=== PATIENT | female | born 1990 | race Caucasian/White ===

== ENCOUNTER 2023-04-23 15:29 | Outpatient (CLI) | payer SELFPAY | END 2023-04-23 15:30 | disposition home or self-care (01) | PROVIDERS: PCP Family Medicine; Visit Provider Family Medicine | DX: Z00.00 Encounter for general adult medical examination without abnormal findings (principal); R53.83 Other fatigue; Z13.6 Encounter for screening for cardiovascular disorders; Z11.59 Encounter for screening for other viral diseases | CPT/HCPCS: 80053; 80061; 84443; 86803 ==

== ENCOUNTER 2023-06-07 10:48 | Outpatient (CLI) | payer OTHER, SELFPAY ==
--- NOTE | 2023-06-07 11:00 | CRLHL7_ITS ---
For Patients: As a result of the Century Cures Act, medical imaging exams and procedure reports are released immediately into your electronic medical record. You may view this report before your referring provider. If you have questions, please contact your health care provider. Indication: Localized swelling and mass in the left lateral neck. Technique: Ultrasound examination of the palpable abnormality in the left lateral neck is performed with a high-resolution linear transducer. Comparison: None available Findings: The palpable abnormality is seen to be a normal appearing mildly prominent lymph node, measuring 1.1 x 0.5 x 1.6 centimeters. It has normal hilar architecture and blood flow. With the benign appearance, no further follow-up is indicated radiographically. Impression: Palpable abnormality in the left lateral neck is seen to be a mildly prominent but otherwise normal appearing lymph node, not reaching size criteria to be described as lymphadenopathy. Dictated by García Cardenas MD @ 06/09/2023 5:42:14 PM (Electronically Signed)
== END 2023-06-07 10:49 | disposition home or self-care (01) ==
PROVIDERS: PCP Family Medicine; Visit Provider Family Medicine
DX: R22.1 Localized swelling, mass and lump, neck (principal)
CPT/HCPCS: 76536

== ENCOUNTER 2023-11-12 14:57 | Outpatient (CLI) | payer OTHER, SELFPAY ==
--- OUTSIDE RECORDS SUMMARY | 2023-11-12 15:02 | XMS_ITS | Encounter Summary ---
Author Name Unknown Organization [facility] Address [address] [place] [address] Care Team Providers Care Development Technical Lead Name Role Phone Justin Haley PA-C Primary Care Provider + [phone] Reason for Referral * Therapies (Routine) - New Request Specialty Diagnoses / Procedures Referred By Lora grant Referred To Contact Diagnoses Right calf pain Cruz Fay DO [address] [place] [address] Referral ID Status Reason Start Date Expiration Date V isits Requested Visits Authorized [id number] New Request 04/23/2023 04/22/2024 [id number] Scheduling Instructions Your clinician has recommended an appointment with [facility]. You can quickly make your appointment online at [facility]/schedule. You can also call [phone] for help scheduling your appointment. We suggest you call your health insurance company about your coverage and benefits for this appointment. Question Answer Appointment Urgency? Non-Urgent Requested Services Evaluate and treat May use saline for irrigation or cleansing Yes RFV/Clin Data Right Calf Strain /Partial Tear dexamethasone use Yes May check glucose per protocol (see policy link below) or if patient has symptoms? Yes Comments Goals: Pain Control/strength and ROM Home Exercise Program Modalities Reason for Visit * Reason Comments LEG PAIN KOTA - playing softba ll and was batting, started to run, calf popped, hurt a lot, then the next morning hurt some, but not too bad, calf continued to pop and radiate pain into the hamstring, difficult to put weight on legDOI - 04/06/2023 Encounter Details Date Type Department Care Team Description 04/23/2023 5:20 PM CDT Office Visit [facility] [address] [place] [id number] Cruz Fay DO [address] [place], [place] [address] Strain of right calf muscle (Primary Dx); Right calf pain Social History Tobacco Use Types Packs/Day Years Used Date Smoking Tobacco: Some Days Cigarettes 0.3 8.1 Started: 09/19/2015 Smokeless Tobacco: Never Comments:quit 05/2020 Alcohol Use Standard Drinks/Week Comments Yes 6 (1 standard drink = 0.6 oz pur e alcohol) PHQ-2 Answer Date Recorded PHQ-2 Score 1 05/24/2020 Sex and Gender Information Value Date Recorded Sex Assigned at Not on file Gender Identity Not on file Sexual Orientation Not on file documented as of this encounter Last Filed Vital Signs Vital Sign Reading Time Taken Comments Blood Pressure - - Pulse - - Temperature 36.2 ??C (97.1 ??F) 04/23/2023 5:07 PM CD T Respiratory Rate - - Oxygen Saturation - - Inhaled Oxygen Concentration - - Weight 113.4 kg (250 lb) 04/23/2023 5:07 PM CDT Height 160 cm (5' 3) 04/23/2023 5:07 PM CDT Body Mass Index 44.29 04/23/2023 5:07 PM CDT documented in this encounter Patient Instructions * Patient Instructions* Jessica Atkinson LPN - 04/23/2023 5:20 PM CDT Thank you for choosing [facility] for your health care visit today. Cruz Fay DO Medication Requests: Prescriptions are filled on Weekdays before 3:00PM For all medication refills: Request a refill using MyChart or contact your Pharmacy Paperwork Requests: FMLA or disability paperwork can be faxed to: [phone] Please allow 7-10 business days for completion of all paperwork. [facility] Worker's Compensation Services: E-mail Address: [email or web address] What is Know Your Cost? Know Your Cost is a service for patients and patient/members to call and receive personalized cost information and estimates across our care group. The phone number is (COST) Sunday - Sunday 8 AM to 5 PM To request copies of your medical records, call: [phone] (option 4) Diagnosis: Right Calf Strain/Partial Tear Plan: Follow Up: As needed if symptoms are not improving or worsen. Physical Therapy: Schedule your physical therapy appointment by calling [phone]. Brace/DME: You were provided a Tall walking boot in clinic today. Please use and care according to instructions given today. This item will be billed to your insurance. If insurance does not cover this item, you will be billed for any uncovered amount. You should wear your items as directed in clinic. Weight bear as tolerated. Come out of boot as pain allows. If you have any questions regarding your visit or next steps, please contact us at [phone]. documented in this encounter Progress Notes * Cruz Fay, DO - 04/23/2023 12:00 AM CDT NAME: ANNELISE JUAN CSN: [id number] CLINIC NOTE DATE OF SERVICE: 04/23/2023 : 1990 HISTORY OF PRESENT ILLNESS: This is a 32-year-old female who presents regarding a right lower leg injury. She recalls playing softball about 2 weeks ago and was running and felt a mild discomfort to her right calf. This seemed to improve with rest and conservative measures, but never completely resolved. She noted a new onset of pain yesterday while playing softball when she ran in a similar manner and felt a pop and sudden onset of pain. She localizes pain to the medial aspect of her right calf and she has noted some swelling since yesterday. She notes pain from her calf that radiates down to her ankle and occasionally notes some pain into her posterior thigh. Pain is anywhere from a 5/10 to 10/10 in severity. She has been limping today and feels that she has not had much improvement. Given her ongoing discomfort, she presents here for further evaluation. PAST MEDICAL HISTORY: Reviewed and updated. MEDICATIONS: Per Epic. ALLERGIES: NO KNOWN DRUG ALLERGIES. 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 She is a smoker. She enjoys playing softball. REVIEW OF SYSTEMS: A comprehensive review of systems was performed and is negative. PHYSICAL EXAM: VITAL SIGNS: Height 5 feet 3 inches, weight 250 pounds, temperature 97.1. GENERAL: This is a well-appearing 32-year-old female. She appears comfortable and in no distress. She has an antalgic gait. MUSCULOSKELETAL: Right lower leg exam shows no visible deformity. She is nontender to her right knee and full active range of motion involving her right knee. She has trace swelling to her right calf on comparison to left. She is quite tender over the medial muscle belly of her gastrocnemius. She is nontender over her Achilles tendon which appears to be intact. She has a negative Cortes test. Nontender over her tibia and fibula. She has calf discomfort with foot plantar flexion and dorsiflexion. Negative Homans sign. Sensation is grossly intact to her right lower extremity. ASSESSMENT: Right calf strain/partial tear. PLAN: We discussed her current findings. We discussed her exam which appears consistent with a calfstrain/partial tear. At this time, I recommended placement into a boot. She was fitted for a tall CAM boot in clinic and she will utilize this in the short term. She can come out of this as pain allows, but will utilize this in the short term. I also recommended a physical therapy referral to help advance her and she is interested in pursuing this. She will continue ice, relative rest, and ymie-tav-[id number] analgesics. I recommended she refrain from softball activities until she is able to run without pain. She is overall comfortable with plan and she will follow up here as needed. DO FELISA RODRIGUEZ/KAVITHA /[id number] documented in this encounter Plan of Treatment Scheduled Referrals Name Type Priority Associated Diagnoses Orde r Schedule Physical Therapy Referral Routine Right calf pain Ordered: 04/23/2023 documented as of this encounter Visit Diagnoses Diagnosis Strain of right calf muscle- Primary Right calf pain documented in this encounter Care Teams Development Technical Lead Relationship Specialty Start Date End Date Justin Haley PA-C [address] [place] [address] PCP - General Physician Field Party Manager 07/03/19 documented as of this encounter
--- OUTSIDE RECORDS SUMMARY | 2023-11-12 15:02 | XMS_ITS | Encounter Summary ---
Author Name Unknown Organization [facility] Address [address], [place] [address] Care Team Providers Care Immigration Officer Name Role Phone TeraJustin Demian QUIJANO Primary Care Provider [phone] Encounter Details Date Type Department Care Team Description 05/07/2023 6:10 PM CDT Office Visit [facility] [address] [place] [address] Seymour Rao MD [address] [place] [address] Strain of calf muscle, right, subsequent encounter (Primary Dx) Social History Tobacco Use Types Packs/Day Years [...] on file documented as of this encounter Patient Instructions * Patient Instructions* Zamzam Gant, ATC - 05/07/2023 6:10 PM CDT Thank you for choosing [facility] for your health care visit today. Seymour Rao MD Medication Requests: Prescriptions are filled on Weekdays before 3:00PM For all medication refills: Request a refill using [employer] or contact your Pharmacy Paperwork Requests: FMLA or disability paperwork can be faxed to: [phone] Please allow 7-10 business days for completion of all paperwork. [facility] Worker's Compensation Services: E-mail Address: [email or web address] What is Know Your Cost? Know Your Cost is a service for patients and patient/members to call and receive personalized cost information and estimates across our care group. The phone number is (COST) Sunday - Sunday 8 AM to 5 PM To request copies of your medical records, call: [phone] (option 4) Diagnosis: Calf tear Plan: Follow Up: 2 weeks Medications: Over the Counter Medications: Acetaminophen (Tylenol) Ibuprofen (Motrin) taken per bottle instructions unless specified by physician. RICE: - Utilize ice over the injured area (ice bag or bag of frozen vegetables) several times per day for up to 20 minutes at a time. Be sure to place a cold wet wash cloth or towel between the ice and your skin. - Elevate the affected body part above the level of the heart for 15-20 minutes, 3-4 times per day. - Avoid activities that cause pain. Brace/DME: You were provided a crutches, SHERMAN wrap, and heel lifts inside shoes in clinic today. Please use and care according to instructions given today. This item will be billed to your insurance. If insurance does not cover this item, you will be billed for any uncovered amount. You should wear your items as directed in clinic. If you have any questions regarding your visit or next steps, please contact us at [phone]. documented in this encounter Progress Notes * Seymour Rao MD - 05/07/2023 6:10 PM CDT [facility] Follow-Up 05/07/2023 History of Present Illness: Annelise Qureshi is a 32 y.o. female who presents for follow-up ongoing pain from right calf injury.Patient had sudden onset of pain while she was playing softball approximally 2 weeks ago. She was diagnosed with a tear to the gastrosoleus complex by Dr. Fay on April 23 and placed in a tall boot. Patient presents today because the boot is irritating her calf and not helping her pain. She is wondering if there is any other options. She has pain still in the same location. No new pain or injury. No new swelling.. Physical Exam: There were no vitals taken for this visit. Skin: No redness, swelling, warmth, rash, laceration or abrasion Neuro: Intact sensation to light touch over the leg Cardiovascular: Normal capillary refill. 2+ distal pulses Musculoskeletal: Right leg: Tenderness over the mid calf without palpable defect or overlying ecchymosis or edema. No distal edema. Pain is exacerbated with plantar flexion against resistance and passive dorsiflexion of the ankle. There is no tenderness or defect over the Achilles tendon. Assessment: ICD-10-CM 1. Strain of calf muscle, right, subsequent encounter S86.811D Plan: 32-year-old female with ongoing pain from what is most likely a tear in the gastrocnemius muscle. Patient is prescribed tall boot is irritating the area. We will transition her out of the boot into heel lifts with a Sherman wrap in crutch assisted ambulation. Would like to refer to physical therapy foradditional management. Would like to follow up with patient in 2 weeks to check on her progress. Nonew areas of pain or distal edema to suggest DVT. History is very convincing for muscular tear. Educated the patient regarding her condition and management. Discharged with return precautions Scribe Disclosure: Seymour Moyer, am serving as a scribe to document services personally performed by Seymour Rao MD at this visit, based upon the providers statements to me. All documentation has been reviewed by the aforementioned doctor prior to being entered into the official medical record. Entered on 05/07/23 at 9:09 PM. Seymour Moyer MD, attest that the above named individual is acting in scribe capacity, has observed my performance of the services performed at this visit and has documented them in accordancewith my direction. Entered on 07/24/23 at 9:09 PM. Seymour Rao MD documented in this encounter Plan of Treatment Not on file documented as of this encounter Visit Diagnoses Diagnosis Strain of calf muscle, right, subsequent encounter- Primary documented in this encounter Care Teams Immigration Officer Relationship Specialty Start Date End Date Justin Haley PA-C [address] [place] [address] PCP - General Physician Strategy Manager 07/03/19 documented as of this encounter
--- OUTSIDE RECORDS SUMMARY | 2023-11-12 15:02 | XMS_ITS | Encounter Summary ---
Author Name Unknown Organization [facility] Address [address] [place] [address] Care Team Providers Care Bulk Plant Supervisor Name Role Phone Justin Haley PA-C Primary Care Provider [phone] Reason for Visit * Reason Comments QUESTIONS, GENERAL Encounter Details Date Type Department Care Team Description 05/07/2023 Telephone [facility] [address] [place] [address] Cruz Fay DO [address] [place] [address] QUESTIONS, GENERAL Social History Tobacco Use Types Packs/Day Years [...] on file documented as of this encounter Nursing Notes * Janice Pinon RN - 05/07/2023 11:41 AM CDT Informed Annelise of Dr. Fay's message. She reported her pain has been persistent and even worsening since AGUSTÍN. I advised she RTC for re-eval and crutches. She wants to return boot as well. She will bring it with to F/U this evening. * Rafaela Kong RN - 05/07/2023 10:42 AM CDT Patient requesting a call back from care team to discuss other options rather than wearing a boot. Boot is causing patient pain and discomfort. Advise please on next steps. ASSESSMENT: Right calf strain/partial tear. PLAN: We [...] She will continue ice, relative rest, and mkdb-oya-mtdelhx analgesics. I recommended she refrain from softball activities until she is able to run without pain. She is overall comfortable with plan and she will follow up here as needed. DO FELISA RODRIGUEZ/KAVITHA /[id number] * Deanna Mccracken - 05/07/2023 8:50 AM CDT Has the patient recently had surgery or an injury? No How may we help you today? Patient requesting a call back from care team. Describe your symptoms/concerns: Patient requesting a call back from care team to discuss other options rather than wearing a boot. Boot is causing patient pain and discomfort. Have you been seen for this recently?: 04/23/2023 - Cruz Fay DO [Rail Bender/Appt Center: If yes, please include date and provider.] Is it okay to leave detailed message on your voicemail? Yes [Rail Bender/Appt Center: If this call is after 3 p.m., communicate to patient: If we are not able to get back to you by the end of the day and your symptoms worsen please contact the Careline] documented in this encounter Plan of Treatment Not on file documented as of this encounter Visit Diagnoses Not on filedocumented in this encounter Care Teams Bulk Plant Supervisor Relationship Specialty Start Date End Date Justin Haley PA-C [address] [place] [address] PCP - General Physician Political Science Professor 07/03/19 documented as of this encounter
--- OUTSIDE RECORDS SUMMARY | 2023-11-12 15:02 | XMS_ITS | Encounter Summary ---
Author Name Unknown Organization [facility] Address [address], [place] [address] Care Team Providers Care Baseball Umpire For Little League Name Role Phone Tera Justin Arciniega PA-C Primary Care Provider [phone] Reason for Visit * Reason Comments QUESTIONS, GENERAL Encounter Details Date Type Department Care Team Description 05/09/2023 Telephone [facility] [address] [place] [address] Seymour Rao MD [address] [place] [address] QUESTIONS, GENERAL Social History Tobacco Use Types [...] Nursing Notes * Janice Pinon RN - 05/09/2023 1:25 PM CDT Informed Annelise of Dr. Rao's message. She expressed understanding. * Teresa Montanez - 05/09/2023 11:50 AM CDT Has the patient recently had surgery or an injury? No Patient states new restrictions were provided at last visit, unsure if she'll need a new Physical therapy order. Please advise. documented in this encounter Plan of Treatment Not on file documented as of this encounter Visit Diagnoses Not on filedocumented in this encounter Care Teams Baseball Umpire For Little League Relationship Specialty Start Date End Date Justin Haley PA-C [address] [place] [address] PCP - General Physician Metal Hanging Helper 07/03/19 documented as of this encounter
--- OUTSIDE RECORDS SUMMARY | 2023-11-12 15:02 | XMS_ITS | Clinical Summary ---
Author Name Unknown Organization [facility] Address [address] [address] Care Team Providers Care Armhole Baster Hand Name Role Phone Justin Haley PA-C Primary Care Provider [phone] Source Comments You are receiving this document as you are listed as the primary care provider,follow-up provider, or the patient has been referred to you for consultation.This is in compliance with the Medicare andDun[facility] Memorial Hospitalcact EHR Incentive Program,which states Providers who transition their patient to another setting of careor provider of care or refers their patient to another provider of care shouldprovide summary care record for each transition of care or referral. [facility] Allergies No known active allergies Medications Medication Sig Dispensed Refills Start Date End Date Status cyclobenzaprine (FLEXERIL) 10 MG tablet Take 1 Tablet by mouth three times a day as needed for Muscle Spasms. 20 Tablet 0 09/15/2020 Active Additional Information Patient not taking.Reported on 05/03/2021 naproxen sodium (ANAPROX) 550 MG tablet Take 1 Tablet by mouth two times a day with meals. Use as needed 30 Tablet 0 09/15/2020 Active Additional Information Patient not taking.Reported on 04/23/2023 atomoxetine (STRATTERA) 40 MG capsule Take 1 Capsule by mouth daily. 7 Capsule 0 01/05/2021 Active Additional Information Patient not taking.Reported on 05/03/2021 atomoxetine (STRATTERA) 60 MG capsule TAKE 1 CAPSULE BY MOUTH DAILY. 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 pylori infection 11/13/2013 10/23/19 15 Strain of rotator cuff 05/31/201210/23 Immunizations Name Administration Dates Next Due DTP 06/20/1994, 3,04/15/1993,1992 Flu Vac Preserv Free (3+yrs) 07/29/2009 HepB Adult (Engerix-B, 20+ y rs, 3 dose series) 06/13/1993,04/10/1993,01/01/1993 HepB Ped/Adol (0-18 yrs) 01/01/1993 IPV (Polio) 01/07/2001 Influenza, Unspecified Formulation 07/29/2009, MMR 02/17/2002,01/07/2001,03/10/1994 OPV, Trivalent (Orimune or tOPV) 995,01/24/1994,01/08/1994,1993 TDAP (BOOSTRIX) 05/29/2006 Td 01/07/2001 Td (7+ yrs) 11/06/2018 Td Adult, Unspecified Formulation 11/06/2018 Varicella 06/29/2006,05/29/2006 Social History Tobacco Use Types Packs/Day Years Used Date Smoking Tobacco: Some Days Cigarettes 0.3 8.1 Started: 09/19/2015 Smokeless Tobacco: Never Tobacco Cessation:Ready to Q uit: No; Counseling Given: No Comments:quit 05/2020 Alcohol Use Standard Drinks/Week Comments Yes 6 (1 standard drink = 0.6 oz pur e alcohol) PHQ-2 Answer Date Recorded PHQ-2 Score 1 05/24/2020 Sex and Gender Information Value Date Recorded Sex Assigned at Not on file Gender Identity Not on file Sexual Orientation Not on file Last Filed Vital Signs Vital Sign Reading Time Taken Comments Blood Pressure 114/84 05/03/2021 2:56 PM CDT Pulse 73 01/05/2021 10:21 AM CDT Temperature 36.2 ??C (97.1 ??F) 04/23/2023 5:07 PM CD T Respiratory Rate 16 05/31/2020 1:02 PM CDT Oxygen Saturation 100% 05/31/2020 1:02 PM CDT Inhaled Oxygen Concentration - - Weight 113.4 kg (250 lb) 04/23/2023 5:07 PM CDT Height 160 cm (5' 3) 04/23/2023 5:07 PM CDT Body Mass Index 44.29 04/23/2023 5:07 PM CDT Plan of Treatment Health Maintenance Due Date Last Done Comments COVID-19 Vaccine (#1) 07/03/1993 Pneumococcal (1 - PCV) 1998 Adult Preventive Visit 11/06/2020 11/06/2018 Influenza (#1) 2023 07/29/2009, 07/15, 09/17/2003 Cervical Cancer Screening 05/03/2024 05/03/2021 DTaP/Tdap/Td (9 - Tdap) 11/06/2028 11/06/19, 11/06/2018, 05/29/2006, Additional history exists Zoster/Shingles (1 of 2) 2042 HepB Completed 06/13/1993, 03/16, 01/01/1993, Additional history exists Hep C Screening (Preventive Services) Completed 01/07/2001 IPV (Polio) Completed 01/07/2001, 02/12, 01/24/1994, Additional history exists HIV Screening (Preventive Services) Completed 05/29/2006 HPV Vaccine Aged Out No longer eligi ble based on patient's age to complete this topic HepA Aged Out No longer eligi ble based on patient's age to complete this topic Hib Aged Out No longer eligi ble based on patient's age to complete this topic MCV4 Aged Out No longer eligi ble based on patient's age to complete this topic Care Teams Armhole Baster Hand Relationship Specialty Start Date End Date Justin Haley PA-C [address] [place] [address] PCP - General Physician Briquette Molder 07/03/19
== END 2023-11-12 14:58 | disposition home or self-care (01) ==
PROVIDERS: PCP Family Medicine; Visit Provider Family Medicine
DX: R59.1 Generalized enlarged lymph nodes (principal)
CPT/HCPCS: 80053; 86140

== ENCOUNTER 2023-11-19 14:50 | Outpatient (CLI) | payer OTHER, SELFPAY ==
--- OUTSIDE RECORDS SUMMARY | 2023-11-19 14:52 | XMS_ITS | Encounter Summary ---
Author Name Unknown Organization [facility] Address [address] [place] [address] Care Team Providers Care Backup Administrator Name Role Phone Justin Haley PA-C Primary Care Provider [phone] Reason for Visit * Reason Comments QUESTIONS, GENERAL Encounter Details Date Type Department Care Team Description 05/07/2023 Telephone [facility] [address] [place] [address] Cruz Fay DO [address] [place] [address] QUESTIONS, GENERAL Social History Tobacco Use Types Packs/Day Years Used Date Smoking Tobacco: Some Days Cigarettes 0.3 8.2 Started: 09/19/2015 Smokeless Tobacco: Never Comments:quit 05/2020 [...] She will continue ice, relative rest, and scwk-hmf-gpocbji analgesics. I recommended she refrain from softball activities until she is able to run without pain. She is overall comfortable with plan and she will follow up here as needed. DO FELISA RODRIGUEZ/KAVITHA /[id number] * Deanna Mccracken - 05/07/2023 8:50 AM [...] this recently?: 04/23/2023 - Cruz Fay DO [[facility]: If yes, please include date and provider.] Is it okay to leave detailed message on your voicemail? Yes [[facility]: If this call is after 3 p.m., communicate to patient: If we are not able to get back to you by the end of the day and your symptoms worsen please contact the Careline] documented in this encounter Plan of Treatment Not on file documented as of this encounter Visit Diagnoses Not on filedocumented in this encounter Care Teams Backup Administrator Relationship Specialty Start Date End Date Justin Haley PA-C [address] [place] [address] PCP - General Physician Mounter Automatic 07/03/19 documented as of this encounter
--- OUTSIDE RECORDS SUMMARY | 2023-11-19 14:52 | XMS_ITS | Encounter Summary ---
Author Name Unknown Organization [facility] Address [address] [address] Care Team Providers Care Acquisition Professional Name Role Phone Tera Justin Arciniega PA-C Primary Care Provider [phone] Reason for Visit * Reason Comments QUESTIONS, GENERAL Encounter Details Date Type Department Care Team Description 05/09/2023 Telephone [facility] [address] [place] [address] Seymour Rao MD [address] [place] [address] QUESTIONS, GENERAL Social History Tobacco Use [...] on filedocumented in this encounter Care Teams Acquisition Professional Relationship Specialty Start Date End Date Justin Haley PA-C [address] [place] [address] PCP - General Physician Dye Mixer 07/03/19 documented as of this encounter
--- OUTSIDE RECORDS SUMMARY | 2023-11-19 14:52 | XMS_ITS | Encounter Summary ---
Author Name Unknown Organization [facility] Address [address], [place] [address] Care Team Providers Care Scientific Technical Writer Name Role Phone Justin Haley PA-C Primary Care Provider [phone] Reason for Referral * Therapies (Routine) - New Request Specialty Diagnoses / Procedures Referred By Lora grant Referred To Contact Diagnoses Right calf pain Cruz Fay DO [address] [place] [address] Referral ID Status Reason Start Date Expiration Date V isits Requested Visits Authorized [id number] New Request 04/23/2023 04/22/2024 [id number] Scheduling Instructions Your clinician has recommended an appointment with [facility]. You can quickly make your appointment online at [email or web address]. You can also call [phone] for help scheduling your appointment. We suggest [...] Office Visit [facility] [address] [place] [id number] Cruz Fay DO [address] [place], [place] [address] Strain of right calf muscle (Primary Dx); [...] or disability paperwork can be faxed to: [phone] Please allow 7-10 business days for completion of all paperwork. [facility] Worker's Compensation Services: E-mail Address: [email or web address] What is Know Your Cost? Know Your Cost is a service for patients and patient/members to call and receive personalized cost information and estimates across our care group. The phone number is (COST) Sunday - Sunday 8 AM to 5 PM To request copies of your medical records, call: [phone] (option 4) Diagnosis: Right Calf Strain/Partial Tear Plan: Follow Up: As needed if symptoms are not improving or worsen. Physical Therapy: Schedule your physical therapy appointment by calling [phone]. Brace/DME: You were provided a Tall walking [...] or next steps, please contact us at [phone]. documented in this encounter Progress Notes * Cruz Fay, DO - 04/23/2023 12:00 AM CDT NAME: ANNELISE JUAN CSN: [id number] CLINIC NOTE DATE OF SERVICE: 04/23/2023 : [...] She will continue ice, relative rest, and boav-vzc-xkqdxue analgesics. I recommended she refrain from softball activities until she is able to run without pain. She is overall comfortable with plan and she will follow up here as needed. DO FELISA RODRIGUEZ/KAVITHA /[id number] documented in this encounter Plan of Treatment Scheduled Referrals Name Type Priority Associated Diagnoses Orde r Schedule Physical Therapy Referral Routine Right calf pain Ordered: 04/23/2023 documented as of this encounter Visit Diagnoses Diagnosis Strain of right calf muscle- Primary Right calf pain documented in this encounter Care Teams Scientific Technical Writer Relationship Specialty Start Date End Date Justin Haley PA-C [address] [place] [address] PCP - General Physician Shaft Headman 07/03/19 documented as of this encounter
--- OUTSIDE RECORDS SUMMARY | 2023-11-19 14:52 | XMS_ITS | Clinical Summary ---
Author Name Unknown Organization [facility] Address [address], [place] [address] Care Team Providers Care Truss Builder Name Role Phone Justin Haley PA-C Primary Care Provider [phone] Source Comments You are receiving this document as you are listed as the primary care provider,follow-up provider, or the patient has been referred to you for consultation.This is in compliance with the Medicare and[facility] EHR Incentive Program,which states Providers who transition their patient to another setting of careor provider of care or refers their patient to another provider of care shouldprovide summary care record for each transition of care or referral. 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
--- OUTSIDE RECORDS SUMMARY | 2023-11-19 14:52 | XMS_ITS | Encounter Summary ---
Author Name Unknown [facility] Address [address], [place] [address] Care Team Providers Care Natural Developer Name Role Phone TeraJustin Demian QUIJANO Primary Care Provider [phone] Encounter Details Date Type Department Care Team Description 05/07/2023 6:10 PM CDT Office Visit [facility] [address] [place] [address] Seymour Rao MD [address] [place] [address] Strain of calf muscle, right, subsequent [...] all medication refills: Request a refill using [employer] or contact your Pharmacy Paperwork Requests: FMLA or disability paperwork can be faxed to: [phone] Please allow 7-10 business days for completion of all paperwork. [facility] Worker's Compensation Services: E-mail Address: [email or web address] What is Know Your Cost? Know Your Cost is a service for patients and patient/members to call and receive personalized cost information and estimates across our care group. The phone number is (COST) Sunday - Sunday 8 AM to 5 PM To request copies of your medical records, call: [phone] (option 4) Diagnosis: Calf tear Plan: Follow [...] or next steps, please contact us at [phone]. documented in this encounter Progress Notes * Seymour Rao MD - 05/07/2023 6:[address] [facility] Follow-Up 05/07/2023 History of [...] Primary documented in this encounter Care Teams Natural Developer Relationship Specialty Start Date End Date Justin Haley PA-C [address] [place] [address] PCP - General Physician Immunology Specialist 07/03/19 documented as of this encounter
--- NOTE | 2023-11-19 15:00 | CRLHL7_ITS ---
For Patients: As a result of the Century Cures Act, medical imaging exams and procedure reports are released immediately into your electronic medical record. You may view this report before your referring provider. If you have questions, please contact your health care provider. INDICATION: Palpable area in the left side of the neck. TECHNIQUE: Focused ultrasound of the left supraclavicular soft tissues. COMPARISON: 06/07/2023. Findings: There is a 1.0 x 1.3 x 0.4 cm lymph node with preserved fatty hilum in the left supraclavicular region corresponding to the patient`s lump. According to the [facility] laboratory is notes, this is distinct from the lymph node that was imaged on 06/07/2023. Impression: Normal appearing left supraclavicular lymph node Dictated by Dao Maharaj MD @ 11/20/2023 2:31:50 PM (Electronically Signed)
== END 2023-11-19 14:51 | disposition home or self-care (01) ==
LOC: US 14:51
PROVIDERS: PCP Family Medicine; Visit Provider Family Medicine
DX: R59.1 Generalized enlarged lymph nodes (principal)
CPT/HCPCS: 76536

== ENCOUNTER 2024-04-25 23:22 | Emergency (ER) | payer OTHER, SELFPAY ==
[2024-04-25 23:35] VITALS: BP 119/97; PULSE 87; RESP 16; TEMP 36.3; O2SAT 97; BMI 39.3
--- NOTE | 2024-04-25 23:42 | CRLHL7_ITS ---
For Patients: As a result of the Cures Act, medical imaging exams and procedure reports are released immediately into your electronic medical record. You may view this report before your referring provider. If you have questions, please contact your health care provider. INDICATION: Pain/injury, fall during softball. TECHNIQUE: Right wrist 3 view. COMPARISON: None. FINDINGS: No acute fracture or dislocation. Joint spaces are preserved. Soft tissues are unremarkable. IMPRESSION: No acute findings. Dictated by Sarah Dalton MD @ 04/26/2024 12:40:45 AM (Electronically Signed)
--- NOTE | 2024-04-25 23:42 | CRLHL7_ITS ---
For Patients: As a result of the Cures Act, medical imaging exams and procedure reports are released immediately into your electronic medical record. You may view this report before your referring provider. If you have questions, please contact your health care provider. INDICATION: Pain/injury, fall during softball. TECHNIQUE: Right hand 3 view. COMPARISON: None. FINDINGS: No acute fracture or dislocation. Joint spaces are preserved. Soft tissues are unremarkable. IMPRESSION: No acute findings. Dictated by Sarah Dalton MD @ 04/26/2024 12:43:00 AM (Electronically Signed)
--- NOTE | 2024-04-26 00:10 | ED.GENADULT ---
HPI - General Adult General Chief complaint: Extremity Pain/Injury, Upper Stated complaint: R hand injury Time Seen by Provider: 04/25/24 23:55 Source: patient Mode of arrival: ambulatory Limitations: no limitations History of Present Illness HPI narrative: Female presents the emergency department couple of hours after an injury to her right hand. She fell while she was playing softball loop was not struck by the ball directly. She fell onto an outstretched hand and has no wrist pain but has pain at the MCP joints of the 2nd finger mainly also a little bit on the 3rd and also along the shaft of the metacarpal bones. No sensory or movement deficits. No difficulty operating the thumb. No decreased hand strength. It does hurt to make a tight fist. No pain at the proximal or distal wrist, elbow or shoulder. Has not tried any medication to help with her symptoms. Only the right hand is affected, no symptoms on the left. No other areas of injury, head injury, etc.. No use of anticoagulants no prior history of hand surgeries. Past medical history notable for obesity and ADHD. Her only home medication is Adderall no recent adjustments. Social history reviewed. ROS notable for the hand symptoms only, otherwise negative for other skin, musculoskeletal, neurological or generalized complaints today. Related Data Previous Rx's ?Medication ?Instructions ?Recorded dextroamphetamine-amphetamine 20 20 mg PO QDAY #30 tabs 04/10/24 mg tablet (Adderall) Allergies Allergy/AdvReac Type Severity Reaction Status Date / Time No Known Drug Allergies Allergy Verified 11/12/23 14:35 [facility] Medical History Adopted ?Z02.82 - Encounter for adoption services (ICD-10) Social History Non-prescribed substance use: denies use Little interest or pleasure in doing things: not at all Feeling down, depressed, or hopeless: not at all Exam Const: Vital Signs, click to edit/add: Vital Signs - 24 hr 04/25/24 23:35 Temperature 97.4 F L Pulse Rate [Pulse Oximeter] 87 Respiratory Rate 16 Blood Pressure [Ri ght Upper Arm] 119/97 H Pulse Oximetry 97 Oxygen Delivery Me thod Room Air Documenting provider has reviewed patient's vital signs: yes Common normals: no apparent distress General appearance: cooperative and well kempt Orientation/consciousness: Yes awake HENMT: Common normals: normocephalic and head/scalp atraumatic Head and scalp: normocephalic and atraumatic Face and sinus: normal facial exam Eye: General eye: normal appearance of both eyes Other: Normal gaze Neck & C-Spine: General: normal visual inspection Resp: Common normals: normal respiratory effort Effort & inspection: able to speak in complete sentences Cardio: Other: Regular radial pulses with normal capillary refill of all fingers Extremity: Other: Right shoulder with normal range of motion. Both wrists with normal range of motion. Left hand normal with normal function, strength the and appearance. Right hand with mild swelling to the 2nd MCP joint area. Does have bony tenderness along the MCP joint. Does have normal range of motion of all fingers, thumbs of right hand. Hesitant with range of motion because of pain but technically is fully complete. Normal sensation. Normal strength. No deformities, bruising or broken skin. Neuro: Sensorium/orientation: awake Speech: speech normal Motor exam: no movement abnormalities noted Psych: Appearance: well kempt Attitude: engaged Activity/motor behavior: appropriate eye contact Mood and affect: euthymic mood Insight: insight good Judgement: judgment good Skin: Common normals: no rashes or lesions noted General skin exam: no rashes or lesions noted Course Course ED Course: Outstretched hand injury with no signs of wrist pain, questionable injury to 1st MCP area. Hand and wrist x-rays performed. Per my interpretation these do not show any signs of fracture. Patient declines pain medication. Radiology interpretation reviewed, also showing no signs of fracture. Repeat evaluation showing good movement, same tenderness as initial exam. Do not recommend brace. Recommended Tylenol ibuprofen as needed for discomfort. Alarm symptoms reviewed that would warrant ED presentation. She verbalizes good understanding and agreement. Follow-up if not improving in 10-14 days. Vital Signs Vital signs: Initial Vital Signs Temperature 97.4 F L 04/25/24 23:35 Temperature Source Temporal Artery Scan 04/25/24 23:35 Pulse Rate 87 04/25/24 23:35 Respiratory Rate 16 04/25/24 23:35 Blood Pressure 119/97 H 04/25/24 23:35 Blood Pressure Mean 104 04/25/24 23:35 Blood Pressure Position Supine 04/25/24 23:35 Pulse Oximetry 97 04/25/24 23:35 Oxygen Delivery Method Room Air 04/25/24 23:35 Vital Signs Temperature 97.4 F L 04/25/24 23:35 Pulse Rate 87 04/25/24 23:35 Respiratory Rate 16 04/25/24 23:35 Blood Pressure 119/97 H 04/25/24 23:35 Pulse Oximetry 97 04/25/24 23:35 Oxygen Delivery Method Room Air 04/25/24 23:35 Temperature 97.4 F L 04/25/24 23:35 Pulse Rate 87 04/25/24 23:35 Respiratory Rate 16 04/25/24 23:35 Blood Pressure 119/97 H 04/25/24 23:35 Pulse Oximetry 97 04/25/24 23:35 Oxygen Delivery Method Room Air 04/25/24 23:35 Medical Decision Making Imaging Data Right wrist x-ray: Attestation: I have reviewed the pertinent imaging results. My impression: Normal right wrist x-ray Radiologist's impression: IMPRESSION: No acute findings. Right hand x-ray: Attestation: I have reviewed the pertinent imaging results. My impression: Normal right hand x-ray Radiologist's impression: IMPRESSION: No acute findings. Discharge Plan Discharge Clinical Impression: Hand sprain Patient Disposition: Home w/ Parent or Adult Condition: Stable Instructions: Sprain (ED) Additional Instructions: As we discussed, the x-ray does not show any signs of fracture, this is great news. It can be common to have discomfort and swelling associated with the type of fall that occurred. There is no benefit to splinting or casting. It is okay to use the hand based on her comfort level. I recommend Tylenol 1000 mg every 6 hours as needed for discomfort and or ibuprofen 600 mg every 6 hours. Slight numbness, tingling, bruising or slight purplish hue may occur in the fingers because of the injury but this should only last for a couple of days, and should be mild of course. Any inability to use the hand, severe discomfort or worsening symptoms should be re-evaluated. The back part of the knuckle will be tender to touch probably for couple of weeks. If you have difficulty still using the hand after 10 days, I would recommend re-evaluation. Activity Level: No Restrictions Discharge Diet: Regular Prescriptions: No Action dextroamphetamine-amphetamine [Adderall] 20 mg tablet 20 mg PO QDAY Qty: 30 0RF Follow Up/Referrals: Janice Holcomb MD [Primary Care Provider] - Stand Alone Forms: [employer] Info Instructions
--- OUTSIDE RECORDS SUMMARY | 2024-04-26 00:30 | XMS_ITS | Referral Summary ---
Author Organization [facility] Address [address] [place] [address] Care Team Providers Care Rod Puller And Coiler Name Role Phone Unavailable Primary Care Provider Unavailabl e Allergies No known active allergies Medications No known medications Social History Tobacco Use Types Packs/Day Years Used Date Smoking Tobacco: Every Day Cigarettes Smokeless Tobacco: Never Adolescent Education Answer Date Record ed Getting School Help Needed Not on file 11/26 Sex and Gender Information Value Date Recorded Sex Assigned at Not on file Gender Identity Not on file Sexual Orientation Not on file Last Filed Vital Signs Vital Sign Reading Time Taken Comments Blood Pressure - - Pulse - - Temperature - - Respiratory Rate - - Oxygen Saturation - - Inhaled Oxygen Concentration - - Weight 90.7 kg (200 lb) 10/04/2017 12:47 PM ANALYTICAL RESEARCH PROGRAM MANAGER Height 160 cm (5' 3) 10/04/2017 12:47 PM ANALYTICAL RESEARCH PROGRAM MANAGER Body Mass Index 35.43 10/04/2017 12:47 PM ANALYTICAL RESEARCH PROGRAM MANAGER Plan of Treatment Not on file Procedures Procedure Name Priority Date/Time Associated Diagnosis Comments HEPATITIS C (HIM EXTERNAL RESULT) Routine 04/23/2023 3:49 PM CDT from Last 3 Months or Most Recently Relevant to Health Maintenance Results * Hepatitis C (HIM External Result) (04/23/2023 3:49 PM CDT) Hep C HIM See Scanned Document [facility] 04/23/2023 3:49 PM CDT Narrative [facility] - 04/23/2023 3:49 PM CDT [facility] LAB RESULT Provider Outside LAB - HIM EXTERNAL R ESULT [facility] [address] [id number], [facility] [phone] from Last 3 Months or Most Recently Relevant to Health Maintenance
--- OUTSIDE RECORDS SUMMARY | 2024-04-26 00:30 | XMS_ITS | Encounter Summary ---
Author Organization [facility] Address [address] [place] [address] Care Team Providers Care Screw Machine Setter Name Role Phone Unavailable Primary Care Provider Unavailabl e Reason for Visit * Reason Onset Date Comments CD Outpatient 10/01/2017 Encounter Details Date Type Department Care Team ([facility] st Contact Info) Description 10/01/2017 Telephone [facility] Intake [address] [place] [address] Generic, Behavioral Intake, CD Outpatient Social History Tobacco Use Types Packs/Day Years Used Date Smoking Tobacco: Never Assessed Sex and Gender Information Value Date Recorded Sex Assigned at Not on file Gender Identity Not on file Sexual Orientation Not on file documented as of this encounter Miscellaneous Notes * Telephone Encounter - Sruthi Matta - 10/01/2017 12:01 PM CST Pt called requesting cd eval. States is court ordered due to 5th degree possession charge/felony Had marijuana oil. No hx of treatment. Hx of taking Straterra for ADD but not currently. She will bring her letter from [place] [facility] approving her cd eval. Scheduled 10/04 at [place]. HEMMER documented in this encounter Plan of Treatment Not on file documented as of this encounter Visit Diagnoses Not on filedocumented in this encounter
--- OUTSIDE RECORDS SUMMARY | 2024-04-26 00:30 | XMS_ITS | Clinical Summary ---
Author Organization [facility] Address [address] [place] [address] Care Team Providers Care Sorter Upholstery Parts Name Role Phone Unavailable Primary Care Provider Unavailabl e Allergies No known active allergies Medications No known medications Family History Medical History Relation Comments Anxiety Disorder No family hx of Autism Spectrum Disorder No family hx of Bipolar Disorder No family hx of Dementia No family hx of Depression No family hx of [place] Disease No family hx of Intellectual Disability No family hx of Mental Illness No family hx of Parkinsonism No family hx of Schizophrenia No family hx of Substance Abuse No family hx of Suicide No family hx of Unknown/Adopted No family hx of Relation Status Comments Brother Alive Father Alive Maternal Grandfather Maternal Grandmother Alive Mother Alive Sister Alive Social History Tobacco Use Types Packs/Day Years [...] 90.7 kg (200 lb) 10/04/2017 12:47 PM SHIP LOADER Height 160 cm (5' 3) 10/04/2017 12:47 PM SHIP LOADER Body Mass Index 35.43 10/04/2017 12:47 PM SHIP LOADER Plan of Treatment Not on file Procedures Procedure Name Priority Date/Time Associated Diagnosis Comments HEPATITIS C (HIM EXTERNAL RESULT) Routine 04/23/2023 3:49 PM CDT from Last 3 Months or Most Recently Relevant to Health Maintenance Results * Hepatitis C (HIM External Result) (04/23/2023 3:49 PM CDT) Hep C HIM See Scanned Document [facility] 04/23/2023 3:49 PM CDT Narrative [facility] - 04/23/2023 3:49 PM CDT [facility] RESULT Provider Outside LAB - HIM EXTERNAL R ESULT Performing Organization Address City/State/[facility] Co de Phone Number [facility] [address] [place], [place] [address] [phone] from Last 3 Months or Most Recently Relevant to Health Maintenance
--- OUTSIDE RECORDS SUMMARY | 2024-04-26 00:30 | XMS_ITS | Clinical Summary ---
[facility] Address [address], [place] [address] Care Team Providers Care Refrigerator Car Icer Name Role Phone Justin Haley PA-C Primary Care Provider [phone] Source Comments You are receiving this document as you are listed as the primary care provider,follow-up provider, or the patient has been referred to you for consultation.This is in compliance with the Medicare and[facility] EHR Incentive Program,which states Providers who transition their patient to another setting of careor provider of care or refers their patient to another provider of care shouldprovide summary care record for each transition of care or referral. [employer] Allergies No known active allergies Medications Medication Sig Dispensed Refills Start Date End Date Status cyclobenzaprine (FLEXERIL) 10 MG tablet Take 1 Tablet by mouth three times a day as needed for Muscle Spasms. 20 Tablet 09/15/2020 Active Additional Information Patient not taking.Reported on 05/03/2021 naproxen sodium (ANAPROX) 550 MG tablet Take 1 Tablet by mouth two times a day with meals. Use as needed 30 Tablet 09/15/2020 Active Additional Information Patient not taking.Reported on 04/23/2023 atomoxetine (STRATTERA) 40 MG capsule Take 1 Capsule by mouth daily. 7 Capsule 01/05/2021 Active Additional Information Patient not taking.Reported on 05/03/2021 atomoxetine (STRATTERA) 60 MG capsule TAKE 1 CAPSULE BY MOUTH DAILY. 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 Overview: LW Onset: 69Ouy32 ; Developmental Written Expression Dis Resolved Problems [...] Date Smoking Tobacco: Some Days Cigarettes 0.3 8.6 Started: 09/19/2015 Smokeless Tobacco: Never Tobacco Cessation:Ready [...] Health Maintenance Due Date Last Done Comments Pneumococcal (1 - PCV) 1998 Adult Preventive Visit 11/06/2020 11/06/2018 COVID-19 Vaccine ( - 2022- season) 2023 Cervical Cancer Screening 05/03/2024 05/03/2021 Influenza (#1) 2024 07/29/2009, 07/15, 09/17/2003 DTaP/Tdap/Td (9 - Tdap) 11/06/2028 11/06/19, 11/06/2018, [...] on patient's age to complete this topic Procedures Procedure Name Priority Date/Time Associated Diagnosis Comments PAP TEST Routine 05/03/2021 3:27 PM CDT Screening for cervical cancer HIV ANTIBODY Routine 05/29/2006 2:50 PM CDT HEPATITIS C ANTIBODY, WITH REFLEX Routine 01/07/2001 11:10 AM LANGUAGE AND LITERATURE DIVISION CHAIR from Last 3 Months or Most Recently Relevant to Health Maintenance Results * PAP Test (05/03/2021 3:27 PM CDT) Case Report Pap ? Case: [id number] ? Authorizing Provider: ??Jackie Willson MD ?? Collected: ? 05/03/2021 1527 ? Ordering Location: ? [place] [address] ?Received: ?05/03/2021 1532 ? Obstetrics/Gyneco logy ? First Screen: ?Veronica Johnson, CT (ASCP) ? Specimen: ?Pap Test, Routine, Cervix/Endocervix ? 05/10/2021 1:00 PM CDT [facility] Pap Specimen Adequacy Satisfactory for evaluation, endocervical/baldwin sformation zone component absent. 05/10/2021 1:00 PM CDT [facility] Pap Interpretation Negative for intraepithelial lesion or malignancy (NILM). 05/10/2021 1:00 PM CDT [facility] Pap Other Findings Fungal organisms morphologically consistent with Glenna spp. 05/10/2021 1:00 PM CDT [facility] Pap Disclaimer The Pap test is a screening test designed to aid in the detection of cervical cancer and its precursor lesions. It is not a diagnostic procedure and should not be used as the sole means of detecting cervical cancer. Both false-positive and false-negative results may occur. 05/10/2021 1:00 PM CDT [facility] Gross Description The specimen is received in SurePath fixative and properly labeled. 1 Pap-stained SurePath slide is prepared. 05/10/2021 1:00 PM CDT [facility] Embedded Images 1:00 PM CDT [facility] Other Specimen Type ENTIRE ENDOCERVIX / Unknown 05/03/2021 3:27 PM CDT 05/03/2021 3:32 PM CDT Comment:LMP: Patient's last menstrual period was 04/28/2021 (exact date). Jackie Willson MD LAB PATHOLOGY Performing Organization Address City/[facility]/ZIP Co de Phone Number [facility] [place], [place] [id number] [place] [address] * HIV Antibody (05/29/2006 2:50 PM CDT) HIV 1/HIV 2 Non Reac Non Reac HP CONVERSION 05/29/2006 2:50 PM CDT Alicja Cline MD LAB_1 HP CONVERSION * Hepatitis C Antibody, with Reflex (01/07/2001 11:10 AM LANGUAGE AND LITERATURE DIVISION CHAIR) Hepatitis C Antibody Non Reac Non Reac HP CONVERSION 01/07/2001 11:1 0 AM LANGUAGE AND LITERATURE DIVISION CHAIR Naldo Avila MD LAB_1 HP CONVERSION from Last 3 Months or Most Recently Relevant to Health Maintenance Care Teams Refrigerator Car Icer Relationship Specialty Start Date End Date Justin Haley PA-C [address] [place] [address] PCP - General Physician Supervisor [employer] 07/03/19
== END 2024-04-26 01:09 | disposition home or self-care (01) ==
LOC: ED 04-26 00:28
PROVIDERS: Emergency Provider Family Medicine; PCP Family Medicine
DX: S63.91XA Sprain of unspecified part of right wrist and hand, initial encounter (principal); W18.30XA Fall on same level, unspecified, initial encounter; Y93.64 Activity, baseball
CPT/HCPCS: 73110; 73130; 99283

== ENCOUNTER 2024-07-02 11:30 | Outpatient (CLI) | payer OTHER, SELFPAY ==
--- NOTE | 2024-07-02 11:30 | CRLHL7_ITS ---
For Patients: As a result of the Century Cures Act, medical imaging exams and procedure reports are released immediately into your electronic medical record. You may view this report before your referring provider. If you have questions, please contact your health care provider. Indication: Generalized enlarged lymph nodes Technique: Grayscale and color Doppler ultrasound of the left neck soft tissues performed. Comparison: None Findings: Subcutaneous lymph node is present measuring 9 x 3 x 8 millimeters. A 2nd lymph node is present measuring 5 x 3 x 5 millimeters. Normal internal vascularity. The central fatty hilum noted. Impression: Subcentimeter left cervical lymph nodes. Dictated by Johnnie Guerrero MD @ 07/02/2024 12:37:55 PM (Electronically Signed)
--- OUTSIDE RECORDS SUMMARY | 2024-07-02 11:32 | XMS_ITS | Clinical Summary ---
Author Organization [facility] Address [address] [place] [address] Care Team Providers Care Research Aide Name Role Phone Unavailable Primary Care Provider Unavailabl e Allergies No known active allergies Medications No known medications Family History Medical History Relation Comments Anxiety Disorder No family hx of Autism Spectrum Disorder No family hx of Bipolar Disorder No family hx of Dementia No family hx of Depression No family hx of [place] Disease No family hx of Intellectual Disability [...] 90.7 kg (200 lb) 10/04/2017 12:47 PM DATASTAGE ARCHITECT Height 160 cm (5' 3) 10/04/2017 12:47 PM DATASTAGE ARCHITECT Body Mass Index 35.43 10/04/2017 12:47 PM DATASTAGE ARCHITECT Plan of Treatment Not on file [facility] 1990 [facility] [address] [place] [address]
--- OUTSIDE RECORDS SUMMARY | 2024-07-02 11:32 | XMS_ITS | Referral Summary ---
Author Organization [facility] Address [address] [place] [address] Care Team Providers Care Golf Teacher Name Role Phone Unavailable Primary Care Provider [...] 90.7 kg (200 lb) 10/04/2017 12:47 PM RADIO NEWS WRITER Height 160 cm (5' 3) 10/04/2017 12:47 PM RADIO NEWS WRITER Body Mass Index 35.43 10/04/2017 12:47 PM RADIO NEWS WRITER Plan of Treatment Not on file
--- OUTSIDE RECORDS SUMMARY | 2024-07-02 11:32 | XMS_ITS | Clinical Summary ---
[facility] Address [address], [place] [address] Care Team Providers Care Structural Steel Worker Apprentice Name Role Phone Justin Haley PA-C Primary Care Provider [phone] Source Comments You are receiving this document as you are listed as the primary care provider,follow-up provider, or the patient has been referred to you for consultation.This is in compliance with the Medicare and[facility] EHR Incentive Program,which states Providers who transition their patient to another setting of careor provider of care or refers their patient to another provider of care shouldprovide summary care record for each transition of care or referral. 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 Overview (06/06/2017): LW Onset: 32Oqb74 ; Developmental Written Expression Dis Resolved Problems [...] Date Smoking Tobacco: Some Days Cigarettes 0.3 8.8 Started: 09/19/2015 Smokeless Tobacco: Never Tobacco Cessation:Ready [...] PCV) 1998 Adult Preventive Visit 11/06/2020 11/06/2018 Cervical Cancer Screening 05/03/2024 05/03/2021 COVID-19 Vaccine ( season) 2024 Influenza (#1) 2024 07/29/2009, 07/15, 09/17/2003 DTaP/Tdap/Td [...] ANTIBODY, WITH REFLEX Routine 01/07/2001 11:10 AM MIS DIRECTOR from Last 3 Months or Most Recently Relevant to Health Maintenance Results * PAP Test (05/03/2021 3:27 PM CDT) Case Report Pap ? Case: [id number] ? Authorizing Provider: ??Jackie Willson MD ?? Collected: ? 05/03/2021 1527 ? Ordering Location: ? [place] [address] ?Received: ?05/03/2021 1532 ? Obstetrics/Gyneco logy ? First Screen: ?Veronica Johnson, CT (ASCP) ? Specimen: ?Pap Test, Routine, Cervix/Endocervix ? 05/10/2021 1:00 PM CDT [facility] Pap Specimen Adequacy Satisfactory for evaluation, endocervical/baldwin sformation zone component absent. 05/10/2021 1:00 PM CDT [facility] Pap Interpretation Negative for intraepithelial lesion or malignancy (NILM). 05/10/2021 1:00 PM CDT [facility] Pap Other Findings Fungal organisms morphologically consistent with Glenna spp. 05/10/2021 1:00 PM CDT [facility] Pap Disclaimer The Pap test is a screening test designed to aid in the detection of cervical cancer and its precursor lesions. It is not a diagnostic procedure and should not be used as the sole means of detecting cervical cancer. Both false-positive and false-negative results may occur. 05/10/2021 1:00 PM CDT [facility] Gross Description The specimen is received in SurePath fixative and properly labeled. 1 Pap-stained SurePath slide is prepared. 05/10/2021 1:00 PM CDT [facility] Embedded Images 1:00 PM CDT [facility] Other Specimen Type ENTIRE ENDOCERVIX / Unknown 05/03/2021 3:27 PM CDT 05/03/2021 3:32 PM CDT Comment:LMP: Patient's last menstrual period was 04/28/2021 (exact date). Jackie Willson MD LAB PATHOLOGY Performing Organization Address [facility] Phone [facility] [address] * HIV Antibody (05/29/2006 2:50 PM CDT) HIV 1/HIV 2 Non Reac Non Reac HP CONVERSION 05/29/2006 2:50 PM CDT Alicja Cline MD LAB_1 Performing Organization Address [facility] Co de Phone Number HP CONVERSION * Hepatitis C Antibody, with Reflex (01/07/2001 11:10 AM MIS DIRECTOR) Hepatitis C Antibody Non Reac Non Reac HP CONVERSION 01/07/2001 11:1 0 AM MIS DIRECTOR Naldo Avila MD LAB_1 HP CONVERSION from Last 3 Months or Most Recently Relevant to Health Maintenance Care Teams Structural Steel Worker Apprentice Relationship Specialty Start Date End Date Justin Haley PA-C [address] [place] [address] PCP - General Physician Dice Dealer 07/03/19
--- OUTSIDE RECORDS SUMMARY | 2024-07-02 11:32 | XMS_ITS | Encounter Summary ---
Author Organization [facility] Address [address] [place] [address] Care Team Providers Care Senior Web Architect Name Role Phone Unavailable Primary Care Provider Unavailabl e Reason for Visit * Reason Onset Date Comments CD Outpatient 10/01/2017 Encounter Details Date Type Department Care Team ([facility] st Contact Info) Description 10/01/2017 Telephone [facility] Intake [address] [place] [address] Generic, Behavioral Intake, CD Outpatient Social History Tobacco Use Types Packs/Day Years Used Date Smoking Tobacco: Never Assessed Sex and Gender Information Value Date Recorded Sex Assigned at Not on file Gender Identity Not on file Sexual Orientation Not on file documented as of this encounter Miscellaneous Notes * Telephone Encounter - Sruhti Matta - 10/01/2017 12:01 PM CST Pt called requesting cd eval. States is court ordered due to 5th degree possession charge/felony Had marijuana oil. No hx of treatment. Hx of taking Straterra for ADD but not currently. She will bring her letter from [facility] approving her cd eval. Scheduled 10/04 at [place]. Y MORNING documented in this encounter Plan of Treatment Not on file documented as of this encounter Visit Diagnoses Not on filedocumented in this encounter
== END 2024-07-02 11:31 | disposition home or self-care (01) ==
LOC: US 11:31
PROVIDERS: PCP Family Medicine; Visit Provider Family Medicine
DX: R59.1 Generalized enlarged lymph nodes (principal)
CPT/HCPCS: 76536

== ENCOUNTER 2025-01-26 14:41 | Outpatient (CLI) | payer OTHER, SELFPAY | END 2025-01-26 14:42 | disposition home or self-care (01) | PROVIDERS: PCP Family Medicine; Visit Provider Family Medicine | DX: R59.1 Generalized enlarged lymph nodes (principal); R70.0 Elevated erythrocyte sedimentation rate; R79.82 Elevated C-reactive protein (CRP); Z13.6 Encounter for screening for cardiovascular disorders; Z13.29 Encounter for screening for other suspected endocrine disorder | CPT/HCPCS: 80053; 80061; 84443; 86038; 86140 ==

== ENCOUNTER 2025-02-26 11:35 | Outpatient (CLI) | payer OTHER, SELFPAY | END 2025-02-26 11:36 | disposition home or self-care (01) | LOC: FRMREF 11:37 | PROVIDERS: PCP Family Medicine; Visit Provider Family Medicine | DX: R82.90 Unspecified abnormal findings in urine; Z79.899 Other long term (current) drug therapy; R21 Rash and other nonspecific skin eruption | CPT/HCPCS: 80053; 87086 ==